=== PATIENT | male | born 1985 | race Caucasian/White ===

== ENCOUNTER 2020-11-19 08:21 | Outpatient (CLI) | payer OTHER, SELFPAY ==
--- NOTE | 2020-11-21 11:14 | P.NEURO_ITS ---
Neurology EEG Report General Information Date of Study: 11/18/20 TEST EEG DIAGNOSIS seizures CONDITION OF RECORDING awake drowsy and sleep EEG NUMBER [id number] CLINICAL HISTORY patient reported he has had 3 seizures but believes they are all alcohol withdrawal related and also admitted that he is a heavy drinker. EEG DESCRIPTION Basic resting occipital frequency consists of small amount of fairly well- organized low voltage 8 to 10 hertz per 2nd alpha admixed with low-voltage beta activity. Bilateral symmetrical sleep activity seen during sleep with symmetrical sleep spindles. Multiple muscle artifacts are noted throughout the tracing. Non paroxysmal. Nonfocal. Nonlateralizing. IMPRESSION No significant abnormalities noted
== END 2020-11-19 08:22 | disposition home or self-care (01) ==
PROVIDERS: PCP Nurse Practitioner Family; Visit Provider Psychiatry & Neurology Neurology
DX: R56.9 Unspecified convulsions (principal)
CPT/HCPCS: 95816

== ENCOUNTER 2022-08-01 13:16 | Emergency (ER) | payer OTHER, SELFPAY ==
[2022-08-01] VITALS (8 sets, daily range): BP systolic 128–154; BP diastolic 86–94; PULSE 69–79; RESP 15; O2SAT 96–100
--- NOTE | ~2022-08-01 | XR_ITS ---
EXAMINATION: XR hand LT min 3V DATE: 08/01/2022 13:43 INDICATION: Deep laceration to the base of the second and third digits. TECHNIQUE: Posteroanterior, oblique and lateral views of the left hand were obtained. COMPARISON: None. FINDINGS: Bone alignment is normal. No fracture. Joint spaces are normal. Bandaging material about the hand wit h linear lucency in the soft tissues at the palmar base of the second digit consistent with reported history of laceration. No evident radiopaque foreign bodies. IMPRESSION: 1. No osseous abnormality or radiopaque foreign bodies. Reviewed, dictated and finalized at location A.
--- NOTE | 2022-08-01 13:57 | ED.WOUNDLAC ---
HPI - Wound/Laceration General Chief Complaint: Wound/Laceration Stated Complaint: hand laceration Time Seen by Provider: 08/01/22 13:25 History of Present Illness HPI narrative: Patient is a 37-year-old [id number] male here for evaluation of a laceration sustained to the dorsal aspect of his left hand about 20 minutes prior to arrival. Patient was using a circular saw when he lost control of the object, pushing his hand directly into the saw. Reports uncontrollable bleeding and pain. Tetanus shot was 3 years ago. Related Data Home Medications Medication Instructions Recorded Confirmed clonazepam 0.5 mg tablet 0.5 mg PO PRN PRN Anxiety 08/01/22 dicyclomine 10 mg capsule mg 08/01/22 gabapentin 300 mg capsule mg 08/01/22 ondansetron HCl 8 mg tablet mg 08/01/22 Allergies Allergy/AdvReac Type Severity Reaction Status Date / Time No Known Drug Allergies Allergy Unknown Verified 04/03/15 11:56 Review of Systems Review of Systems: Gen.: Denies fevers or chills Eyes: Denies eye pain or visual change ENT: Denies congestion Respiratory: Denies shortness of breath or cough CV: Denies chest pain or palpitations GI: Denies abdominal pain nausea, emesis or diarrhea denies burning, urgency, frequency or hematuria Musculoskeletal: Denies back pain or muscle pain Neuro: Denies numbness, tingling, weakness or focal weakness Skin: Reports laceration to left hand. Denies rash Except as documented, all other systems reviewed and negative Exam Narrative: Gen: Alert, oriented, no acute distress Eyes: EOMI, no icterus Pulm: Respirations even and unlabored, symmetric thorax expansion, no audible stridor or visible cyanosis CV: Regular rate per telemetry GI: No distension, no voluntary/involuntary guarding Neuro: AOx4, moves all extremities without apparent difficulty or weakness, follows commands MSK: reports decreased sensation to 3rd-4th digit, patient able to flex and extend fingers, able to move thumb Skin: Patient has an 8 cm linear laceration to the dorsal aspect of his left hand extending from the base of the 4rd MCP to the radial aspect of his second digit. with active bleeding, muscle belly of several tendons are visible and lacerated Psych: Normal mood/affect, insight/judgement good, adequate fund of knowledge, recent/remote memory intact Course Consultations Consultation #1: Spoke with hand surgeon Dr. Peacock at [facility], agrees with plan for transfer, will be ED to ED. Date: 08/01/22 Time: 14:29 Consultation #2: Spoke with Dr. Bower, ED doctor, who accepts patient as ED to ED transfer Date: 08/01/22 Time: 14:31 Vital Signs Vital signs: Vital Signs Pulse Rate 75 08/01/22 13:21 Blood Pressure 154/86 H 08/01/22 13:21 Pulse Rate 74 08/01/22 15:26 Respiratory Rate 15 08/01/22 15:26 Blood Pressure 135/91 H 08/01/22 15:26 Pulse Oximetry 96 08/01/22 15:26 MDM - Wound/Laceration MDM Narrative Medical decision making narrative: 37-year-old male here for evaluation of a large laceration to the dorsal aspect of his left hand sustained from a circular saw, with suspected tendon involvement based on exam and mechanism. Patient does have range of motion in his fingers. x-ray negative for fracture or foreign body. Given that we do not have hand surgeon on-call today, a call was placed to [facility] to talk to a hand surgeon. Surgeon agrees that patient will benefit from transfer for repair of complex laceration. Patient agreeable to plan all questions addressed. Discharge Plan Discharge Clinical Impression: Complicated laceration of hand Qualifiers: Encounter type: initial encounter Laterality: left Qualified Code(s): S61.412A - Laceration without foreign body of left hand, initial encounter Patient Disposition: Acute Care Hospital Condition: Stable Prescriptions: No Action ondansetron HCl 8 mg tablet clonazepam 0.5 mg
[2022-08-01] MEDS: HYDROcodone/acetaminophen (*CRX) 5-325 MG TABLET 1 TAB PO (15:04)
== END 2022-08-01 15:31 | disposition short-term general hospital (02) ==
PROVIDERS: Emergency Provider Emergency Medicine; PCP Nurse Practitioner Family
DX: S61.412A Laceration without foreign body of left hand, initial encounter (principal); W27.0XXA Contact with workbench tool, initial encounter
CPT/HCPCS: 73130; 99285; A9270